=== PATIENT | female | born 1970 | race Two or more races ===

== ENCOUNTER → 2017-08-30 | Outpatient (CLI) | payer BC ==
--- NOTE | 2017-09-01 09:17 | WOMENS IMAGING REPORT ---
EXAM DESCRIPTION: BILAT DIG DX MAMMO NO CHG; U/S BREAST UNILAT LIMITED COMPLETED DATE/TIME: 08/30/2017 1:31 pm; 08/30/2017 2:08 pm REASON FOR STUDY: LUMP IN RIGHT BREAST; BREAST LUMP N63.10 UNSPECIFIED LUMP IN THE RIGHT BREAST, UN SPECIFIED VALERIE COMPARISON: 2013 TECHNIQUE: Standard craniocaudal and mediolateral oblique views of each breast recorded using digita l acquisition. Right breast 90 mediolateral view was obtained. Bilateral breast ultrasound was also performed. LIMITATIONS: None. FINDINGS: RIGHT BREAST MASSES: Nodule right breast retroareolar region about 14 mm in size. This was subsequently shown to represent a complex cyst CALCIFICATIONS: No new or suspicious calcifications. ARCHITECTURAL DISTORTION: None. DEVELOPING DENSITY: None. ASYMMETRY: None noted. OTHER: No other significant findings. LEFT BREAST MASSES: 8 to 9 mm well-circumscribed low-density nodule in the central left retroareolar region subse quently shown to represent a simple breast cyst. CALCIFICATIONS: No new or suspicious calcifications. ARCHITECTURAL DISTORTION: None. DEVELOPING DENSITY: None. ASYMMETRY: None noted. OTHER: No other significant finding. Read with the assistance of CAD: .[facility] - R2 Cenova Version 1.3 .[facility] - R2 Cenova Version 1.3 .[facility] - R2 Cenova Version 2.4 .[facility] [place] - R2 Cenova Version 2.4 .[facility] - R2 M[employer] Acquis[employer] Manager Version 9.2 Bilateral breast ultrasound: On the right side, patient has a palpable abnormality in the lower outer quadrant 7 to 8 o'clock posi tion. This area was scanned with ultrasound, no discrete masses or cysts in this area are identified at ultrasound in the area of questionable palpable abnormality. On the right side, in the 9 o'clock retroareolar region, an hourglass shaped complex cyst is present with slightly thickened wall and internal debris measuring 1.4 x 0.7 cm in size. Ultrasound-guided c ore biopsy and post biopsy clip placement is recommended. Left breast ultrasound was performed to evaluate a central retroareolar low-density nodule on mammogr aphy. In the central retroareolar region left breast, an 8 mm simple cyst is present. In the 9 o'cl ock retroareolar region, 7 mm and 3 mm breast parenchymal cysts are also seen. IMPRESSION: Complex cysts in the right breast retroareolar region containing internal debris with mi ld wall thickening. Ultrasound-guided core biopsy is recommended follow-up BI-RADS 4A -Suspicious abnormality. Low suspicion for malignancy. Biopsy should be performed in the a bsence of clinical contra-indication. No mammographic or sonographic evidence for malignancy left breast BREAST DENSITY: b. There are scattered areas of fibroglandular density. BIRAD: 4A-Suspicious abnormality: Lesion which may require intervention with low suspicion for huber shea. RECOMMENDATION: RECOMMENDED FOLLOW UP: Ultrasound-guided core biopsy and post biopsy clip placement of the right breast retroareolar complex cyst, 9 o'clock position SPECIFIC INTERVENTION/IMAGING/CONSULTATION RECOMMENDED:As above COMMUNICATION:This report was called to Dr. Santiago, 0900 hours, 09/01/2017 COMMENT: The patient has been notified of the results by letter per SA requirements. Additional no tification policies are in place for contacting patient with suspicious or incomplete findings. Quality ID #[id number]: The [employer] recommends an annual screening mammogram for women aged 40 years or over. This facility utilizes a reminder system to ensure that all patients receive reminder letters, and/or direct phone calls for appointments. This includes reminders for routine scr eening mammograms, diagnostic mammograms, or other Breast Imaging Interventions when appropriate. Th is patient will be placed in the appropriate reminder system. The [employer] (ACR) has developed recommendations for screening MRI of the breast s in certain patient populations, to be used in conjunction with mammography. Breast MRI surveillanc e may be appropriate for women with more than 20% lifetime risk of developing breast cancer as deter mined by genetic testing, significant family history of the disease, or history of mantle radiation f or Hodgkins Disease. ACR Practice Guidelines 2008. TECHNICAL DOCUMENTATION: FINDING NUMBER: (1) ASSESSMENT: (1) JOB ID: [id number] [employer]- All Rights Reserved
--- NOTE | 2017-09-01 09:17 | WOMENS IMAGING REPORT ---
EXAM DESCRIPTION: BILAT DIG DX MAMMO NO CHG; U/S BREAST UNILAT LIMITED COMPLETED DATE/TIME: 08/30/2017 1:31 pm; 08/30/2017 2:08 pm REASON FOR STUDY: LUMP IN RIGHT BREAST; BREAST LUMP N63.10 UNSPECIFIED LUMP IN THE RIGHT BREAST, UN SPECIFIED VALERIE COMPARISON: 2013 TECHNIQUE: Standard craniocaudal and mediolateral oblique views of each breast recorded using digita l acquisition. Right breast 90 mediolateral view was obtained. Bilateral breast ultrasound was also performed. LIMITATIONS: None. FINDINGS: RIGHT BREAST MASSES: Nodule right breast retroareolar region about 14 mm in size. This was subsequently shown to represent a complex cyst CALCIFICATIONS: No new or suspicious calcifications. ARCHITECTURAL DISTORTION: None. DEVELOPING DENSITY: None. ASYMMETRY: None noted. OTHER: No other significant findings. LEFT BREAST MASSES: 8 to 9 mm well-circumscribed low-density nodule in the central left retroareolar region subse quently shown to represent a simple breast cyst. CALCIFICATIONS: No new or suspicious calcifications. ARCHITECTURAL DISTORTION: None. DEVELOPING DENSITY: None. ASYMMETRY: None noted. OTHER: No other significant finding. Read with the assistance of CAD: .[facility] - R2 Cenova Version 1.3 .[facility] - R2 Cenova Version 1.3 .[facility] - R2 Cenova Version 2.4 .[facility] - R2 Cenova Version 2.4 .[facility] - R2 Entry Level Accountant Version 9.2 Bilateral breast ultrasound: On the right side, patient has a palpable abnormality in the lower outer quadrant 7 to 8 o'clock posi tion. This area was scanned with ultrasound, no discrete masses or cysts in this area are identified at ultrasound in the area of questionable palpable abnormality. On the right side, in the 9 o'clock retroareolar region, an hourglass shaped complex cyst is present with slightly thickened wall and internal debris measuring 1.4 x 0.7 cm in size. Ultrasound-guided c ore biopsy and post biopsy clip placement is recommended. Left breast ultrasound was performed to evaluate a central retroareolar low-density nodule on mammogr aphy. In the central retroareolar region left breast, an 8 mm simple cyst is present. In the 9 o'cl ock retroareolar region, 7 mm and 3 mm breast parenchymal cysts are also seen. IMPRESSION: Complex cysts in the right breast retroareolar region containing internal debris with mi ld wall thickening. Ultrasound-guided core biopsy is recommended follow-up BI-RADS 4A -Suspicious abnormality. Low suspicion for malignancy. Biopsy should be performed in the a bsence of clinical contra-indication. No mammographic or sonographic evidence for malignancy left breast BREAST DENSITY: b. There are scattered areas of fibroglandular density. BIRAD: 4A-Suspicious abnormality: Lesion which may require intervention with low suspicion for huber shea. RECOMMENDATION: RECOMMENDED FOLLOW UP: Ultrasound-guided core biopsy and post biopsy clip placement of the right breast retroareolar complex cyst, 9 o'clock position SPECIFIC INTERVENTION/IMAGING/CONSULTATION RECOMMENDED:As above COMMUNICATION:This report was called to Dr. Santiago, 0900 hours, 09/01/2017 COMMENT: The patient has been notified of the results by letter per SA requirements. Additional no tification policies are in place for contacting patient with suspicious or incomplete findings. Quality ID #[id number]: The [employer] recommends an annual screening mammogram for women aged 40 years or over. This facility utilizes a reminder system to ensure that all patients receive reminder letters, and/or direct phone calls for appointments. This includes reminders for routine scr eening mammograms, diagnostic mammograms, or other Breast Imaging Interventions when appropriate. Th is patient will be placed in the appropriate reminder system. The [employer] (ACR) has developed recommendations for screening MRI of the breast s in certain patient populations, to be used in conjunction with mammography. Breast MRI surveillanc e may be appropriate for women with more than 20% lifetime risk of developing breast cancer as deter mined by genetic testing, significant family history of the disease, or history of mantle radiation f or Hodgkins Disease. ACR Practice Guidelines 2008. TECHNICAL DOCUMENTATION: FINDING NUMBER: (1) ASSESSMENT: (1) JOB ID: [id number] [employer]- All Rights Reserved
== END ==
LOC: WI 13:07
PROVIDERS: ATTEND Nurse Practitioner Family
DX: N60.02 Solitary cyst of left breast (principal); N60.01 Solitary cyst of right breast
CPT/HCPCS: 76642

== ENCOUNTER → 2017-09-16 | Day surgery (SDC) | payer BC ==
[~2017-09-16] MED LIST: LIDOCAINE 1% INJ-PF (10 MG/ML) 30 ML SDV ONE
--- NOTE | 2017-09-28 08:29 | WOMENS IMAGING REPORT ---
EXAM DESCRIPTION: U/S BREAST BX; RIGHT DIG DX MAMMO NO CHG COMPLETED DATE/TIME: 09/16/2017 2:13 pm; 09/16/2017 2:25 pm REASON FOR STUDY: LUMP IN RIGHT BREAST; S/P RIGHT US BX FOR CLIP PLACEMENT N63.41 N63.41 UNSPECIF IED LUMP IN RIGHT BREAST, SUBAREOLAR COMPARISON: Mammograms and ultrasound 08/30/2017, Mammograms 03/26/2014 TECHNIQUE: The procedure was discussed with the patient and the patient agreed to proceed. The patient was scanned and the area of interest in the right retroareolar 9 o'clock position was loc alized. This correlates with the area of concern on prior imaging studies. This area was targeted fo r ultrasound-guided core biopsy. After sterile skin prep and 3 mL local lidocaine 1% for skin and deep tissue anesthesia, a 14 gauge c oaxial core biopsy needle was used to obtain several cores of tissue from the lesion. Under ultrasou nd guidance, tumor even clips were placed in the area sampled. There were no immediate post-procedur e complications. MAMMOGRAM: Post-procedure two view mammogram was acquired in the digital mammogram suite. The clips a re in the expected location. No significant hematoma. Pathology yields a diagnosis of benign breast tissue with fibrocystic changes and usual ductal hyperp lasia, negative for atypia and malignancy Pathology is concordant. LIMITATIONS: None. FINDINGS: Ultrasound guided breast biopsy as described above. POST PROCEDURE MAMMOGRAMS FOR MARKER PLACEMENT: Yes IMPRESSION: ULTRASOUND-GUIDED CORE BIOPSY OF THE RIGHT BREAST YIELDS A DIAGNOSIS OF BENIGN TISSUE WI TH FIBROCYSTIC CHANGES. NEGATIVE FOR ATYPIA AND MALIGNANCY BI-RADS 2 Benign findings. COMMENT: COMMUNICATION: THESE RESULTS WERE DISCUSSED WITH THE PATIENT 09/22/2017, 3 PM Patient medication list reviewed: Yes- Quality ID# [id number]:Eligible professional attests to documenting i n the medical record they obtained, updated, or reviewed the patient's current medications. TECHNICAL DOCUMENTATION: JOB ID: [id number] [employer]- All Rights Reserved
== END ==
LOC: WI 12:48
PROVIDERS: ATTEND Family Medicine
PROC: 0HBT3ZX Excision of Right Breast, Percutaneous Approach, Diagnostic (ICD-10-PCS; principal; 2017-09-16)
DX: N60.11 Diffuse cystic mastopathy of right breast (principal); N62 Hypertrophy of breast
CPT/HCPCS: 88342 ×2; 88341 ×2; 88305 ×2; 19083; J3490

== ENCOUNTER → 2018-10-20 | Outpatient (CLI) | payer BC ==
[2018-10-20 10:03] LABS: A TYPE INFLUENZA AG NEGATIVE (NEGATIVE); B INFLUENZA AG NEGATIVE (NEGATIVE)
== END ==
LOC: LAB 09:19
PROVIDERS: ATTEND Internal Medicine Pulmonary Disease
DX: R05 Cough (principal); R50.9 Fever, unspecified
CPT/HCPCS: 87804

== ENCOUNTER → 2019-05-31 | Outpatient (CLI) | payer BC ==
[2019-05-31 10:03] LABS: ABSOLUTE BASOPHILS # (AUTO) 0.1 10^3/uL (0.0-0.2); ABSOLUTE EOSINOPHILS # (AUTO) 0.2 10^3/uL (0.0-0.6); ABSOLUTE LYMPHOCYTES (AUTO) 2.3 10^3/uL (0.5-4.7); ABSOLUTE MONOCYTES (AUTO) 0.6 10^3/uL (0.1-1.4); ABSOLUTE NEUT (AUTO) 3.6 10^3/uL (1.7-8.2); BASOPHILS % (AUTO) 0.9 % (0-2); EOSINOPHILS % (AUTO) 3.2 % (0-6); HEMATOCRIT 42.8 % (36.0-47.0); HEMOGLOBIN 14.1 g/dL (12.0-15.5); LYMPHOCYTES % (AUTO) 33.5 % (13-45); MEAN CORPUSCULAR HEMOGLOBIN 27.5 pg (27.0-33.4); MEAN CORPUSCULAR HGB CONC 32.9 g/dL (32.0-36.0); MEAN CORPUSCULAR VOLUME 83 fl (80-97); MONOCYTES % (AUTO) 9.6 % (3-13); PLATELET COUNT 174 10^3/uL (150-450); RED BLOOD COUNT 5.13 10^6/uL (3.72-5.28); RED CELL DISTRIBUTION WIDTH 15.7 % (11.5-14.0); SEGMENTED NEUTROPHILS % (AUTO) 52.8 % (42-78); TOTAL CELLS COUNTED % (AUTO) 100 %; WHITE BLOOD COUNT 6.8 10^3/uL (4.0-10.5)
[2019-05-31 10:26] LABS: ALBUMIN 4.4 g/dL (3.5-5.0); ALKALINE PHOSPHATASE 115 U/L (38-126); ANION GAP 11 (5-19); ASPARTATE AMINO TRANSFERASE 75 U/L (14-36); BILIRUBIN,DIRECT 0.1 mg/dL (0.0-0.4); BILIRUBIN,TOTAL 0.5 mg/dL (0.2-1.3); BLOOD UREA NITROGEN 20 mg/dL (7-20); CALCIUM 9.7 mg/dL (8.4-10.2); CARBON DIOXIDE 26 mmol/L (22-30); CHLORIDE 107 mmol/L (98-107); CHOLESTEROL 197.44 mg/dL (0-200); GLUCOSE 106 mg/dL (75-110); POTASSIUM 4.5 mmol/L (3.6-5.0); TRIGLYCERIDES 162 mg/dL (<150)
[2019-05-31 10:37] LABS: DIRECT LDL 114 mg/dL (<100)
[2019-05-31 10:39] LABS: VLDL CHOLESTEROL 32.4 mg/dL (10-31)
== END ==
LOC: LAB 09:33
PROVIDERS: ATTEND Physician Assistant
DX: Z00.00 Encounter for general adult medical examination without abnormal findings (principal); R68.89 Other general symptoms and signs; E78.5 Hyperlipidemia, unspecified; E87.5 Hyperkalemia; Z79.899 Other long term (current) drug therapy
CPT/HCPCS: 36415; 80053; 80061; 82306; 83036; 84443; 85025

== ENCOUNTER → 2019-08-23 | Outpatient (CLI) | payer BC ==
[2019-08-23 10:11] LABS: ALBUMIN 4.3 g/dL (3.5-5.0); ALKALINE PHOSPHATASE 107 U/L (38-126); ANION GAP 10 (5-19); ASPARTATE AMINO TRANSFERASE 40 U/L (14-36); BILIRUBIN,DIRECT 0.2 mg/dL (0.0-0.4); BILIRUBIN,TOTAL 0.4 mg/dL (0.2-1.3); BLOOD UREA NITROGEN 24 mg/dL (7-20); CALCIUM 9.7 mg/dL (8.4-10.2); CARBON DIOXIDE 27 mmol/L (22-30); CHLORIDE 105 mmol/L (98-107); GLUCOSE 109 mg/dL (75-110); POTASSIUM 4.8 mmol/L (3.6-5.0); TOTAL PROTEIN 7.9 g/dL (6.3-8.2)
== END ==
LOC: LAB 08:55
PROVIDERS: ATTEND Physician Assistant
DX: R94.5 Abnormal results of liver function studies (principal)
CPT/HCPCS: 36415; 80053; 83036

== ENCOUNTER → 2020-02-02 | Outpatient (CLI) | payer BC | LOC: RDC 14:39 | PROVIDERS: ATTEND Nurse Practitioner Family | DX: Z53.9 Procedure and treatment not carried out, unspecified reason (principal) | CPT/HCPCS: 87635; C9803 ==

== ENCOUNTER → 2020-04-06 | Outpatient (CLI) | payer BC ==
[2020-04-06 12:36] LABS: A TYPE INFLUENZA AG NEGATIVE (NEGATIVE); B INFLUENZA AG NEGATIVE (NEGATIVE)
[2020-04-06 13:58] VITALS: BP 143/80
--- NOTE | 2020-04-06 13:58 | ER RDC ASSESSMENT REPORT ---
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 - Symptoms Subjective Fever([place] feverish): Yes Chills: Yes Muscule Aches: Yes Runny Nose: Yes Sore Throat: Yes Cough (New or worsening chronic cough): Yes Shortness of breath: No Nausea or Vomiting: No Headache: Yes Abdominal Pain: Yes Diarrhea(3 or more loose stools in last 24 hours): No - Do you have any of the following Chronic lung disease: Asthma or emphysema or COPD: No Cystic Fibrosis: No Diabetes: No High Blood Pressure: No Cardiovascular Disease: No Chronic Kidney Disease: No Chronic Liver Disease: No Chronic blood disorder like Sickle Cell Disease: No Weak immune system due to disease or medication: No Neurologic condition that limits movement: No Developmental delay - Moderate to Severe: No Recent (within past 2 weeks) or current : No Morbid Obesity (>100 pounds over ideal weight): Yes - Objective Temperature: 97.9 F Pulse Rate: 57 Respiratory Rate: 19 Blood Pressure: 143/80 O2 Sat by Pulse Oximetry: 97 Objective: Patient is a well-appearing 49-year-old female, who presents today for COVID-19 screening. Disposition: Home; Selfcare General - General Stated Complaint: Upper respiratory symptoms Mode of Arrival: Ambulatory Information source: Patient Notes: The patient was evaluated during the global COVID-19 pandemic. That diagnosis was suspected/considered upon initial presentation. Their evaluation, treatment, and testing was consistent with current guidelines for patients who present with complaints or symptoms that may be related to COVID-19. 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 - HPI Patient complains to provider of: Upper respiratory symptoms Onset: Last week Onset/Duration: Gradual, Persistent, Worse Quality of pain: Achy Severity: Moderate Pain Level: 3 Context: Generalized body aches. Associated symptoms: Body/muscle aches, Chills, Fever, Headache, Nausea, Vomiting, Rhinnorhea, Sore throat Exacerbated by: Denies Relieved by: Denies Similar symptoms previously: No Recently seen / treated by doctor: No - Related Data Allergies/Adverse Reactions: aspartame Allergy (Verified 06/29/15 18:54) latex [Latex] Allergy (Verified 06/29/15 18:53) meperidine HCl [From Demerol] Allergy (Verified 06/29/15 18:52) naproxen sodium [From Aleve] Allergy (Verified 06/29/15 18:53) Past Medical History - Social History Smoking Status: Former Smoker Cigarette use (# per day): No - Patient reports she quit smoking 6 years ago Chew tobacco use (# tins/day): No Smoking Education Provided: Yes Frequency of alcohol use: Occasional Drug Abuse: None 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 HEAD: Atraumatic, normocephalic. EYES: sclera anicteric, conjunctiva are normal. ENT: nares patent. Moist mucous membranes. NECK: Normal range of motion, supple without lymphadenopathy. LUNGS: CTAB and equal. No wheezes rales or rhonchi. HEART: Regular rate and rhythm without murmurs. ABDOMEN: Soft, nontender, normal bowel sounds, no guarding. EXTREMITIES: Normal range of motion, no pitting edema. No cyanosis. BACK: No midline or CVA tenderness. NEUROLOGICAL: Cranial nerves grossly intact. Normal speech. Normal gait. PSYCH: Normal mood, normal affect. SKIN: Warm, Dry, normal color and turgor, no obvious lesions or rash noted. Diagnostic Results Laboratory Results: Patient notified of NEGATIVE results on Rapid Flu (A & B) and Rapid Strep. Advised Throat Culture and COVID testing are PENDING, and they will be notified of any POSITIVE culture results at a later date/time. Patient has been made aware that is currently taking 5-7 days for COVID test results, and that [facility] [place] with their COVID-19 test results, whether they are NEGATIVE or POSITIVE. 04/06/20 11:35 Throat Throat Culture - Pending Influenza A (Rapid) NEGATIVE (NEGATIVE) 04/06/20 10:46 Influenza B (Rapid) NEGATIVE (NEGATIVE) 04/06/20 10:46 Group A Strep Rapid NEGATIVE (NEGATIVE) 04/06/20 10:46 Patient Education/Counseling Counseling/Education: Patient presents with upper respiratory symptoms worrisome for possible COVID- 19. Patient does not have symptoms worrisome as an emergency such as difficulty breathing, shortness of breath, chest pain, pressure, confusion or cyanosis. Patient appears suitable for discharge. Patient's vital signs are stable and patient is nontoxic in appearance. Good return precautions have been discussed with patient, patient verbalized understanding and is agreeable with discharge plan of care at this time. Patient provided COVID-19 discharge instructions to include: As a person under investigation for COVID-19, the [facility], division of public health advises you to adhere to the following guidance until your test results are reported to you. If your test result is positive, you will receive additional information from your provider and your local health department at that time. Remain at home until you are cleared by the health provider or public health authorities. Keep a log of visitors to your home, notify any visitors to your home of your isolation status. If you plan to move to a new address or leave the county, notify the local health department in your County. Call your doctor or seek care if you have an urgent medical need. Before seeking medical care, call ahead to get instructions from the provider before arriving at the medical office clinic or hospital. Notify them that you are being tested for the virus that causes COVID-19 so that arrangements can be made, as necessary, to prevent transmission to others in the healthcare setting. Next, notify the local health department in your county. If a medical emergency arises and you need to call 911, inform dispatch and the first responders that you are being tested for the virus that causes COVID-19. Next, notify the local health department in your county. Patient provided education on smoking cessation and the harmful effects of smoking, especially in the presence of Co-morbid conditions such as Hypertension, Diabetes, and/or other chronic illnesses. Patient verbalized understanding of smoking cessation education, and the increased health benefits of quitting. Guidance for worsening S/SX: For worsening symptoms, patient has been advised to contact their Primary Care Provider, or go to the nearest Emergency Department. RDC Discharge - Discharge Clinical Impression: COVID-19 Screening URI (upper respiratory infection) Qualifiers: URI type: unspecified URI Qualified Code(s): J06.9 - Acute upper respiratory infection, unspecified Condition: Stable Disposition: Home; Selfcare
== END ==
LOC: RDC 10:30
PROVIDERS: ATTEND Nurse Practitioner Family
DX: J06.9 Acute upper respiratory infection, unspecified (principal); Z20.828 Contact with and (suspected) exposure to other viral communicable diseases; R50.9 Fever, unspecified; R05 Cough; J02.9 Acute pharyngitis, unspecified; J34.89 Other specified disorders of nose and nasal sinuses; M79.10 Myalgia, unspecified site; R51 Headache; R10.9 Unspecified abdominal pain; E66.01 Morbid (severe) obesity due to excess calories; Z88.8 Allergy status to other drugs, medicaments and biological substances; Z91.040 Latex allergy status; Z87.891 Personal history of nicotine dependence
CPT/HCPCS: 87070; 87880; 87804; U0003; C9803; 87635; 99201; 99211

== ENCOUNTER 2020-04-14 10:39 | Emergency (ER) | payer BC ==
--- NOTE | 2020-04-14 11:05 | ER Document Report ---
ED Medical Screen (RME) - General Chief Complaint: Groin Pain Stated Complaint: GROIN PAIN,BACK PAIN Time Seen by Provider: 04/14/20 10:59 Primary Care Provider: KADE BARRETT MD [Primary Care Provider] - Follow up as needed Mode of Arrival: Ambulatory Information source: Patient Notes: 50-year-old female presented to ED for 2 different problems first problem is she has a large knot on her right groin that started April 05. She states it became more painful and larger so she applied heat and then ice and then it made her whole body hot and her whole body hurt and then she had a fever and then she went to bed and it got better overnight and then the more the next morning it developed the same night again so she used heat and ice again and she developed a fever and the body aches again so she came to the emergency room to get this checked out. Her second problem is she thinks she has COVID. She states that she had stomach pain fevers body aches started on April 04. She states that by April 09 her fever was up to 102.6. She states from Wednesday on her temperature has not gotten over 100. She states she has had abdominal pain that got her stomach so hard her body aches headaches fevers and chills on and off since then. She went last Wednesday when she first started getting sick to the [facility]. She states they did do saline washes and then told her to self swab herself. She did not know how far down to go so she went it came back negative she was not sure if this was accurate so Wednesday the second she went to [facility] to get the COVID rechecked and they told her to get do a self swab did not give her any instructions so she is not sure if she swab herself properly again and it was negative again. She states her granddaughter was with her and was also swabbed she has been having fevers and body aches and the same symptoms as her. She states what is concerning her is that her niece got sick the same time they did she is a nurse and she tested herself for COVID at [facility] on Wednesday and hers came back positive and that they had all been together when they all got sick. Patient has a history of a hysterectomy a cholecystectomy and umbilical hernia does not smoke drink or use any drugs. Is alert oriented respirations regular nonlabored and very able to speak in full sentences. I have greeted and performed a rapid initial assessment of this patient. A comprehensive ED assessment and evaluation of the patient, analysis of test results and completion of medical decision making process will be conducted by an additional ED providers. TRAVEL OUTSIDE OF THE [place] IN LAST 30 DAYS: No - Related Data Allergies/Adverse Reactions: aspartame Allergy (Verified 06/29/15 18:54) latex [Latex] Allergy (Verified 06/29/15 18:53) meperidine HCl [From Demerol] Allergy (Verified 06/29/15 18:52) naproxen sodium [From Aleve] Allergy (Verified 06/29/15 18:53) artificial sweetner Allergy (Uncoded 04/14/20 10:48) Past Medical History Past Surgical History: Reports: Hx Abdominal Surgery - hernia, Hx Cholecystectomy, Hx Hysterectomy Doctor's Discharge - Discharge Referrals: KADE BARRETT MD [Primary Care Provider] - Follow up as needed
[2020-04-14 11:42] LABS: ABSOLUTE BASOPHILS # (AUTO) 0.1 10^3/uL (0.0-0.2); ABSOLUTE EOSINOPHILS # (AUTO) 0.3 10^3/uL (0.0-0.6); ABSOLUTE LYMPHOCYTES (AUTO) 2.9 10^3/uL (0.5-4.7); ABSOLUTE MONOCYTES (AUTO) 1.1 10^3/uL (0.1-1.4); ABSOLUTE NEUT (AUTO) 7.1 10^3/uL (1.7-8.2); BASOPHILS % (AUTO) 0.5 % (0-2); EOSINOPHILS % (AUTO) 2.3 % (0-6); HEMATOCRIT 39.2 % (36.0-47.0); HEMOGLOBIN 13.5 g/dL (12.0-15.5); MEAN CORPUSCULAR HEMOGLOBIN 30.6 pg (27.0-33.4); MEAN CORPUSCULAR HGB CONC 34.4 g/dL (32.0-36.0); MEAN CORPUSCULAR VOLUME 89 fl (80-97); MONOCYTES % (AUTO) 9.9 % (3-13); PLATELET COUNT 184 10^3/uL (150-450); RED BLOOD COUNT 4.42 10^6/uL (3.72-5.28); RED CELL DISTRIBUTION WIDTH 14.6 % (11.5-14.0); SEGMENTED NEUTROPHILS % (AUTO) 62.3 % (42-78); TOTAL CELLS COUNTED % (AUTO) 100 %; WHITE BLOOD COUNT 11.4 10^3/uL (4.0-10.5)
[2020-04-14 11:56] LABS: APPEARANCE,URINE CLOUDY; BILIRUBIN,URINE MODERATE (NEGATIVE); COLOR,URINE AMBER; GLUCOSE, URINE NEGATIVE (NEGATIVE); KETONES,URINE NEGATIVE (NEGATIVE); LEUKOCYTE ESTERASE,URINE NEGATIVE (NEGATIVE); NITRITE,URINE NEGATIVE (NEGATIVE); PROTEIN,URINE 100 mg/dL (NEGATIVE); URINE SPECIFIC GRAVITY 1.038
[2020-04-14 12:03] LABS: ALBUMIN 3.6 g/dL (3.5-5.0); ALKALINE PHOSPHATASE 112 U/L (38-126); ANION GAP 9 (5-19); ASPARTATE AMINO TRANSFERASE 28 U/L (14-36); BILIRUBIN,DIRECT 0.4 mg/dL (0.0-0.4); BILIRUBIN,TOTAL 0.5 mg/dL (0.2-1.3); BLOOD UREA NITROGEN 11 mg/dL (7-20); CALCIUM 8.5 mg/dL (8.4-10.2); CARBON DIOXIDE 26 mmol/L (22-30); CHLORIDE 107 mmol/L (98-107); GLUCOSE 94 mg/dL (75-110); POTASSIUM 3.6 mmol/L (3.6-5.0); TOTAL PROTEIN 7.3 g/dL (6.3-8.2)
[2020-04-14] MEDS ORDERED: NORMAL SALINE 1000 ML 1,000 ML IV ONE (14:26)
[2020-04-14] MEDS ORDERED: ONDANSETRON HCL INJ/PF 4 MG/2 ML SDV IV ONE (14:27)
[2020-04-14] MEDS ORDERED: MORPHINE SULFATE 10 MG/ML INJ IV ONE ×2 (14:27→16:45)
[2020-04-14] MEDS ORDERED: CEFTRIAXONE INJ 1000 MG VIAL IV ONE (14:28)
--- NOTE | 2020-04-14 14:29 | ER Document Report ---
ED General - General Chief Complaint: Pain All Over Stated Complaint: GROIN PAIN,BACK PAIN Time Seen by Provider: 04/14/20 10:59 Primary Care Provider: KADE BARRETT MD [Primary Care Provider] - Follow up in 1 week Mode of Arrival: Ambulatory Notes: Patient is a 50-year-old female presents emergency departmentPatient states that her groin pain started around April 05. Denies any dysuria. Patient is wondering if whether or not she has an abscess to the area. Patient states that temperature got as high as 102.6. This was the beginning of April. Patient was tested for COVID-19 at the [facility] clinic, but was told to self swab. She then went to [facility] and asked her to self swab there. Patient states that she the highest temperature she had was 102.6. She has been taking ibuprofen and Tylenol to help with the pain. TRAVEL OUTSIDE OF THE [place] IN LAST 30 DAYS: No - Related Data Allergies/Adverse Reactions: aspartame Allergy (Verified 06/29/15 18:54) latex [Latex] Allergy (Verified 06/29/15 18:53) meperidine HCl [From Demerol] Allergy (Verified 06/29/15 18:52) naproxen sodium [From Aleve] Allergy (Verified 06/29/15 18:53) artificial sweetner Allergy (Uncoded 04/14/20 10:48) Past Medical History - General Information source: Patient - Social History Smoking Status: Never Smoker Family History: CVA, Hypertension Past Surgical History: Reports: Hx Abdominal Surgery - hernia, Hx Cholecystectomy, Hx Hysterectomy Review of Systems - Review of Systems Notes: REVIEW OF SYSTEMS: CONSTITUTIONAL : See HPI. EENT: Denies eye, ear, throat, or mouth pain, discharge, or symptoms. Denies nasal or sinus congestion. CARDIOVASCULAR: Denies chest pain. RESPIRATORY: Denies shortness of breath, cough, congestion, difficulty breathing, or wheezing. GASTROINTESTINAL: See HPI. GENITOURINARY: Denies difficulty urinating, burning, blood in urine, urgency or frequency. MUSCULOSKELETAL: Denies neck and back pain. Denies joint pain or swelling. SKIN: Denies rash, itchiness, or lesions HEMATOLOGIC : Denies easy bruising or bleeding. LYMPHATIC: Denies swollen, painful, enlarged glands. NEUROLOGICAL: Denies no numbness or tingling denies weakness. Denies headache. Denies altered mental status. Denies alteration in speech. PSYCHIATRIC: Denies stress, anxiety, alteration in sleep patterns, or depression. All other systems reviewed and negative. Physical Exam - Vital signs Vitals: Temp Pulse Resp BP Pulse Ox 98.4 F 68 18 123/73 96 04/14/20 10:45 04/14/20 10:45 04/14/20 10:45 04/14/20 10:45 04/14/20 10:45 - Notes Notes: PHYSICAL EXAMINATION: GENERAL: Appears well, healthy, well-nourished, no acute distress. HEAD: Normocephalic, atraumatic. EYES: PERRL, conjunctiva normal, all extraocular movements intact, sclera nonicteric ENT: Moist mucous membranes. NECK: Supple, no noticeable swelling, redness, rash. Normal range of motion. LUNGS: Equal breath sounds bilaterally and clear to auscultation. No wheezes rales or rhonchi. CARDIOVASCULAR: S1-S2, regular rate, regular rhythm. Radial pulses 2+, normal. ABDOMEN: Normoactive bowel sounds. Soft, tender right groin area. EXTREMITIES: Normal strength and range of motion, no pitting or edema. No cyanosis. NEUROLOGICAL: Moves all extremities upon command. Strength 5/5 in all extremities. PSYCH: Normal mood, normal affect. SKIN: Warm, dry. No rash, lesions, ulcerations noted. Normal skin turgor. Course - Re-evaluation Re-evalutation: 04/14/20 14:43 Hematology shows a leukocytosis of 11,400. Chemistries are unremarkable. Urinalysis is also unremarkable. Patient is protein in her urine. The patient was evaluated during the global COVID-19 pandemic and that diagnosis was susp ected/considered upon their initial presentation. Their evaluation, treatment and testing was consistent with current guidelines for patients who present with complaints or symptoms that may be related to COVID-19. 04/14/20 17:[address] shows lymphadenopathy. No abscess noted. There is some stranding noted. We will start the patient on Augmentin, as she does have right otitis media, sinus infection and stranding to her right groin area. The patient was evaluated during the global COVID-19 pandemic and that diagnosis was suspected/considered upon their initial presentation. Their evaluation, treatment and testing was consistent with current guidelines for patients who present with complaints or symptoms that may be related to COVID-19. - Vital Signs Vital signs: Temp Pulse Resp BP Pulse Ox 98.1 F 57 L 18 117/55 L 100 04/14/20 17:44 04/14/20 17:44 04/14/20 17:44 04/14/20 17:44 04/14/20 17:44 - Laboratory Result Diagrams: 04/14/20 11:25 04/14/20 11:25 Laboratory results interpreted by me: 04/14/20 04/14/20 11:25 11:25 WBC 11.4 H RDW 14.6 H Urine Protein 100 H Urine Bilirubin MODERATE H Urine Urobilinogen 2.0 H Discharge - Discharge Clinical Impression: Suspected COVID-19 virus infection, Inguinal lymphadenopathy, Sinus headache Right otitis media Qualifiers: Otitis media type: suppurative Chronicity: acute Recurrence: non-recurrent Spontaneous tympanic membrane rupture: without spontaneous rupture Qualified Code(s): H66.001 - Acute suppurative otitis media without spontaneous rupture of ear drum, right ear Condition: Stable Disposition: HOME, SELF-CARE Additional Instructions: You were seen today in the emergency department for body aches and generally not feeling well. You have enlarged lymph nodes in your right groin area. You are being started on antibiotics for your sinuses, cellulitis to your right groin area, and a right ear infection. Take all your antibiotics as prescribed. He can take your pain medication as prescribed also. You are also being tested for COVID-19. Please quarantine as you have before. If the lymph node does not go away with antibiotics, please follow-up with your primary care provider to have a PET scan for CT scan as advised. Prescriptions: Amoxicillin/Potassium Clav [Augmentin 875-125 Tablet] 1 tab PO BID #20 tab Hydrocodone/Acetaminophen [[place] 5-325 mg Tablet] 1 tab PO ASDIR PRN #20 tablet PRN Reason: Referrals: KADE BARRETT MD [Primary Care Provider] - Follow up in 1 week
--- NOTE | 2020-04-14 16:21 | RADIOLOGY REPORT (SQ) ---
EXAM DESCRIPTION: CT PELVIS WITH IMAGES COMPLETED DATE/TIME: 04/14/2020 3:48 pm REASON FOR STUDY: right groin swelling; lymph node? COMPARISON: CT abdomen and pelvis 06/29/2015. TECHNIQUE: CT scan of the pelvis was performed following the uneventful administration of 100 mL Omn ipaque 350 intravenous contrast material. Images reviewed with soft tissue and bone windows. Recons tructed coronal and sagittal MPR images reviewed. All images stored on PACS. All CT scanners at this facility use dose modulation, iterative reconstruction, and/or weight based d osing when appropriate to reduce radiation dose to as low as reasonably achievable (ALARA). [facility]: Dose Right [facility]: CareDose [facility]: Dose Right [facility]: Teradose 4D [facility]: [employer] Intravenous contrast material: 100 mL Omnipaque 350. Renal function study: Creatinine 0.64 RADIATION DOSE: CT Rad equipment meets quality standard of care and radiation dose reduction techniq ues were employed. CTDIvol: 17.4 - 20.1 mGy. DLP: 1450 mGy-cm. mGy. LIMITATIONS: None. FINDINGS: There is an enlarged enhancing lymph node at the right inguinal region measuring 2.9 x 4.4 cm. There is adjacent mild soft tissue stranding. There is a mildly enlarged lymph node at the right external iliac chain measuring 1.3 cm in short axi s. Mildly enlarged lymph node along the right pelvic wall is measuring 1.0 cm in short axis. Mildly enlarged lymph node at the right common iliac chain is measuring 1.2 cm in short axis. The urinary bladder is partially distended. There is no pelvic mass or free fluid. No dilated bowel loops at the visualized lower abdomen or pelvis. There is diastasis recti. Degenerative changes at the visualized lower lumbar spine. IMPRESSION: Enlarged enhancing lymph node at the right inguinal region with mild adjacent soft tissu e stranding and mild adenopathy at the right pelvis and retroperitoneum. This may represent reactive adenopathy due to acute infection/inflammation versus metastatic disease. Evaluation with tissue sa mpling and/or PET/CT as clinically warranted. TECHNICAL DOCUMENTATION: JOB ID: [id number] [place]- Quality ID # [id number]: Final reports with documentation of one or more dose reduction techniques (e.g., Au tomated exposure control, adjustment of the mA and/or kV according to patient size, use of iterative reconstruction technique) 2010 [employer]- All Rights Reserved Reading location - IP/workstation name: [email or web address]
[2020-04-14] MEDS ORDERED: HYDROCODONE/ACETAMINOPHEN 5-325 MG (6 TAB/ER DISP) PO PRN (17:20)
[2020-04-14 17:44] VITALS: BP 117/55
== END 2020-04-14 17:44 | disposition home or self-care (01) ==
LOC: ER 10:39
DX: R59.0 Localized enlarged lymph nodes (principal); R10.30 Lower abdominal pain, unspecified; R51 Headache; J32.9 Chronic sinusitis, unspecified; H66.001 Acute suppurative otitis media without spontaneous rupture of ear drum, right ear; Z91.040 Latex allergy status; Z88.6 Allergy status to analgesic agent; Z88.5 Allergy status to narcotic agent; Z88.8 Allergy status to other drugs, medicaments and biological substances; Z91.018 Allergy to other foods; Z20.828 Contact with and (suspected) exposure to other viral communicable diseases
CPT/HCPCS: 96376; 99285; 96361; 96375; 96365; 36415; 87086; 85025; 80053; 81001; 72193; U0003; J2270; J0696; J2405; J7030; C9803; 87635

== ENCOUNTER → 2020-04-26 | Outpatient (CLI) | payer BC ==
[2020-04-26 15:36] LABS: APPEARANCE,URINE SLIGHTLY-CLOUDY; BILIRUBIN,URINE NEGATIVE (NEGATIVE); COLOR,URINE YELLOW; GLUCOSE, URINE NEGATIVE (NEGATIVE); KETONES,URINE NEGATIVE (NEGATIVE); LEUKOCYTE ESTERASE,URINE NEGATIVE (NEGATIVE); NITRITE,URINE NEGATIVE (NEGATIVE); PROTEIN,URINE NEGATIVE (NEGATIVE); URINE SPECIFIC GRAVITY 1.023; UROBILINOGEN,URINE NEGATIVE mg/dL (<2.0)
[2020-04-26 15:37] LABS: ABSOLUTE EOSINOPHILS # (AUTO) 0.2 10^3/uL (0.0-0.6); ABSOLUTE LYMPHOCYTES (AUTO) 2.5 10^3/uL (0.5-4.7); ABSOLUTE MONOCYTES (AUTO) 0.8 10^3/uL (0.1-1.4); ABSOLUTE NEUT (AUTO) 4.1 10^3/uL (1.7-8.2); BASOPHILS % (AUTO) 0.5 % (0-2); EOSINOPHILS % (AUTO) 2.3 % (0-6); HEMATOCRIT 35.8 % (36.0-47.0); HEMOGLOBIN 12.4 g/dL (12.0-15.5); LYMPHOCYTES % (AUTO) 32.2 % (13-45); MEAN CORPUSCULAR HEMOGLOBIN 30.5 pg (27.0-33.4); MEAN CORPUSCULAR HGB CONC 34.5 g/dL (32.0-36.0); MEAN CORPUSCULAR VOLUME 88 fl (80-97); MONOCYTES % (AUTO) 11.1 % (3-13); PLATELET COUNT 253 10^3/uL (150-450); RED BLOOD COUNT 4.06 10^6/uL (3.72-5.28); RED CELL DISTRIBUTION WIDTH 15.1 % (11.5-14.0); SEGMENTED NEUTROPHILS % (AUTO) 53.9 % (42-78); TOTAL CELLS COUNTED % (AUTO) 100 %; WHITE BLOOD COUNT 7.6 10^3/uL (4.0-10.5)
[2020-04-26 15:58] LABS: ALBUMIN 3.8 g/dL (3.5-5.0); ALKALINE PHOSPHATASE 112 U/L (38-126); AMYLASE 49 U/L (30-110); ANION GAP 7 (5-19); ASPARTATE AMINO TRANSFERASE 25 U/L (14-36); BILIRUBIN,DIRECT 0.3 mg/dL (0.0-0.4); BILIRUBIN,TOTAL 0.4 mg/dL (0.2-1.3); BLOOD UREA NITROGEN 15 mg/dL (7-20); C-REACTIVE PROTEIN 53.5 mg/L (<10.0); CALCIUM 8.8 mg/dL (8.4-10.2); CARBON DIOXIDE 26 mmol/L (22-30); CHLORIDE 105 mmol/L (98-107); GLUCOSE 100 mg/dL (75-110); POTASSIUM 4.2 mmol/L (3.6-5.0); URIC ACID 4.3 mg/dL (2.5-7.5)
[2020-04-26 16:20] LABS: ERYTHROCYTE SEDIMENTATION RATE 97 mm/hr (0-30)
== END ==
LOC: LAB 14:55
PROVIDERS: ATTEND Family Medicine
DX: R10.9 Unspecified abdominal pain (principal); M25.50 Pain in unspecified joint
CPT/HCPCS: 36415; 80053; 81001; 82150; 82977; 83520; 83690; 84443; 84550; 85025; 85652; 86038; 86140; 86431; 86617; 86618; 86671; 86747; 86757

== ENCOUNTER → 2020-04-30 | Outpatient (CLI) | payer BC ==
[2020-05-01 13:37] LABS: BARTONELLA HENSELAE IGG Negative titer (Neg:<1:320); BARTONELLA HENSELAE IGM Negative titer (Neg:<1:100); BARTONELLA QUINTANA IGG Negative titer (Neg:<1:320)
[2020-05-01 13:46] LABS: BARTONELLA QUINTANA IGM Negative titer (Neg:<1:100)
== END ==
LOC: OD 10:23
PROVIDERS: ATTEND Family Medicine
DX: T14.8XXA Other injury of unspecified body region, initial encounter (principal); X58.XXXA Exposure to other specified factors, initial encounter; Y93.9 Activity, unspecified; Y92.9 Unspecified place or not applicable
CPT/HCPCS: 36415; 86317

== ENCOUNTER → 2020-05-07 | Outpatient (CLI) | payer BC ==
--- NOTE | 2020-05-07 18:24 | RADIOLOGY REPORT (SQ) ---
EXAM DESCRIPTION: U/S NON-OB PELVIS LTD W/O DOP IMAGES COMPLETED DATE/TIME: 05/07/2020 5:34 pm REASON FOR STUDY: (R59.9)ENLARGED LYMPH NODES, UNSPECIFIED R59.9 ENLARGED LYMPH NODES, UNSPECIFIED COMPARISON: 04/14/2020 TECHNIQUE: Dynamic and static grayscale images acquired of the localized site of clinical concern an d recorded on PACS. Additional selected color Doppler and spectral images recorded. SITE OF CONCERN: Bilateral inguinal regions. LIMITATIONS: None. FINDINGS: SKIN AND SUBCUTANEOUS TISSUES: The patient's palpable abnormality in the right inguinal re gion correlates to a 2.8 x 1.2 x 2.6 cm lymph node. An additional 3.0 x 2.4 x 2.1 cm hypoechoic stru cture seen adjacent to this node may correlate to findings on comparison CT imaging. Targeted evalua tion of the left inguinal region demonstrates a normal- morphology lymph node. DEEP SOFT TISSUES/MUSCLES: No masses. No fluid collections. No edema. VASCULAR: No increased or decreased vascularity. No occlusions. OTHER: No other significant finding. IMPRESSION: Prominent right inguinal lymph node. An additional hypoechoic structure seen adjacent t o this node may correlate to a large javier mass demonstrated on comparison CT imaging. No acute find ings. TECHNICAL DOCUMENTATION: JOB ID: [id number] 2010 [employer]- All Rights Reserved Reading location - IP/workstation name: [email or web address]
== END ==
LOC: RAD 16:43
PROVIDERS: ATTEND Family Medicine
DX: R59.9 Enlarged lymph nodes, unspecified (principal)
CPT/HCPCS: 76857

== ENCOUNTER → 2020-07-05 | Outpatient (CLI) | payer BC ==
--- NOTE | 2020-07-05 10:17 | ER RDC ASSESSMENT REPORT ---
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 - Symptoms Subjective Fever([place] feverish): No Chills: No Muscule Aches: Yes Runny Nose: Yes Sore Throat: Yes Cough (New or worsening chronic cough): Yes Shortness of breath: No Nausea or Vomiting: Yes Headache: Yes Abdominal Pain: No Diarrhea(3 or more loose stools in last 24 hours): No - Do you have any of the following Chronic lung disease: Asthma or emphysema or COPD: No Cystic Fibrosis: No Diabetes: No High Blood Pressure: No Cardiovascular Disease: No Chronic Kidney Disease: No Chronic Liver Disease: No Chronic blood disorder like Sickle Cell Disease: No Weak immune system due to disease or medication: No Neurologic condition that limits movement: No Developmental delay - Moderate to Severe: No Recent (within past 2 weeks) or current : No Morbid Obesity (>100 pounds over ideal weight): Yes - Objective Temperature: 98.1 F Pulse Rate: 66 Respiratory Rate: 18 Blood Pressure: 122/59 O2 Sat by Pulse Oximetry: 95 Objective: Patient is a well-appearing 50-year-old female, who presents today for COVID-19 screening. Disposition: Home; Selfcare General - General Stated Complaint: Upper respiratory symptoms Mode of Arrival: Ambulatory Information source: Patient Notes: The patient was evaluated during the global COVID-19 pandemic. That diagnosis was suspected/considered upon initial presentation. Their evaluation, treatment, and testing was consistent with current guidelines for patients who present with complaints or symptoms that may be related to COVID-19. Patient reports having close contact exposure to a COVID-19 lab confirmed positive individual. - HPI Patient complains to provider of: Upper respiratory symptoms Onset: Last week Onset/Duration: Constant, Persistent, Worse Quality of pain: Achy Severity: Mild Pain Level: 2 Context: Generalized body aches. Associated symptoms: Body/muscle aches, Nonproductive cough, Headache, Nausea, Vomiting, Rhinnorhea, Sore throat Exacerbated by: Denies Relieved by: Denies Similar symptoms previously: No Recently seen / treated by doctor: No - Related Data Allergies/Adverse Reactions: aspartame Allergy (Verified 06/29/15 18:54) latex [Latex] Allergy (Verified 06/29/15 18:53) meperidine HCl [From Demerol] Allergy (Verified 06/29/15 18:52) naproxen sodium [From Aleve] Allergy (Verified 06/29/15 18:53) artificial sweetner Allergy (Uncoded 04/14/20 10:48) Past Medical History - Social History Smoking Status: Former Smoker Cigarette use (# per day): No - Quit smoking 12 years ago Chew tobacco use (# tins/day): No Smoking Education Provided: Yes Frequency of alcohol use: Occasional Drug Abuse: None 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 HEAD: Atraumatic, Normocephalic. EYES: Sclera anicteric, Conjunctiva are pink and moist. ENT: Nares patent. Moist mucous membranes. NECK: Normal range of motion, supple without lymphadenopathy. LUNGS: CTAB and equal. No wheezes rales or rhonchi. HEART: Regular rate and rhythm without murmurs. ABDOMEN: Soft, nontender, normal bowel sounds, no guarding. EXTREMITIES: Normal range of motion, no pitting edema. No cyanosis. BACK: No midline or CVA tenderness. No step-off or deformity. NEUROLOGICAL: Cranial nerves grossly intact. Normal speech. Normal gait. PSYCH: Calm, Cooperative, and answers questions appropriately. Normal mood and affect. SKIN: Warm, Dry, Normal color and Turgor, No obvious lesions or rash noted. Diagnostic Results Laboratory Results: Patient notified of NEGATIVE results on Rapid Flu (A & B) and Rapid Strep. Advised Throat Culture and COVID testing are PENDING, and they will be notified of any POSITIVE culture results at a later date/time. Patient has been made aware that is currently taking 3 to 5 days for COVID test results, and that The [facility] Department will call to notify them of a POSITIVE COVID-19 test results and a member of the [facility] team will call to notify them of a NEGATIVE COVID-19 result. Patient aware they will be notified by phone, whether they have a NEGATIVE or POSITIVE COVID-19 result. Patient Education/Counseling Counseling/Education: Patient presents with upper respiratory symptoms worrisome for possible COVID- 19. Patient does not have symptoms worrisome as an emergency such as difficulty breathing, shortness of breath, chest pain, pressure, confusion or cyanosis. Patient appears suitable for discharge. Patient's vital signs are stable and patient is nontoxic in appearance. Good return precautions have been discussed with patient, patient verbalized understanding and is agreeable with discharge plan of care at this time. Patient provided COVID-19 discharge instructions to include: As a person under investigation for COVID-19, the [facility], division of public health advises you to adhere to the following guidance until your test results are reported to you. If your test result is positive, you will receive additional information from your provider and your local health department at that time. Remain at home until you are cleared by the health provider or public health authorities. Keep a log of visitors to your home, notify any visitors to your home of your isolation status. If you plan to move to a new address or leave the county, notify the local health department in your County. Call your doctor or seek care if you have an urgent medical need. Before seeking medical care, call ahead to get instructions from the provider before arriving at the medical office clinic or hospital. Notify them that you are being tested for the virus that causes COVID-19 so that arrangements can be made, as necessary, to prevent transmission to others in the healthcare setting. Next, notify the local health department in your county. If a medical emergency arises and you need to call 911, inform dispatch and the first responders that you are being tested for the virus that causes COVID-19. Next, notify the local health department in your county. Patient provided education on smoking cessation and the harmful effects of smoking, especially in the presence of Co-morbid conditions such as Hypertension, Diabetes, and/or other chronic illnesses. Patient verbalized understanding of smoking cessation education, and the increased health benefits of quitting. Guidance for worsening S/SX: For worsening symptoms, patient has been advised to contact their Primary Care Provider, or go to the nearest Emergency Department. RDC Discharge - Discharge Clinical Impression: COVID-19 Screening URI (upper respiratory infection) Qualifiers: URI type: unspecified URI Qualified Code(s): J06.9 - Acute upper respiratory infection, unspecified Condition: Stable Disposition: Home; Selfcare
[2020-07-05 10:18] VITALS: BP 122/59
[2020-07-05 11:28] LABS: A TYPE INFLUENZA AG NEGATIVE (NEGATIVE); B INFLUENZA AG NEGATIVE (NEGATIVE)
== END ==
LOC: RDC 09:32
PROVIDERS: ATTEND Nurse Practitioner Family
DX: J02.0 Streptococcal pharyngitis (principal); B95.4 Other streptococcus as the cause of diseases classified elsewhere; Z20.828 Contact with and (suspected) exposure to other viral communicable diseases; R50.9 Fever, unspecified; J34.89 Other specified disorders of nose and nasal sinuses; R05 Cough; R11.2 Nausea with vomiting, unspecified; R51.9 Headache, unspecified; M79.10 Myalgia, unspecified site; E66.01 Morbid (severe) obesity due to excess calories; Z88.8 Allergy status to other drugs, medicaments and biological substances; Z88.6 Allergy status to analgesic agent; Z91.02 Food additives allergy status; Z91.040 Latex allergy status; Z87.891 Personal history of nicotine dependence
CPT/HCPCS: 87070; 87880; 87077; 87804; U0003; C9803; 87635; 99211

== ENCOUNTER → 2020-07-21 | Outpatient (CLI) | payer BC ==
[2020-07-21 18:39] LABS: APPEARANCE,URINE CLOUDY; BILIRUBIN,URINE NEGATIVE (NEGATIVE); COLOR,URINE YELLOW; GLUCOSE, URINE NEGATIVE (NEGATIVE); KETONES,URINE NEGATIVE (NEGATIVE); PROTEIN,URINE 30 mg/dL (NEGATIVE)
== END ==
LOC: LAB 18:07
PROVIDERS: ATTEND Registered Nurse
DX: R30.0 Dysuria (principal)
CPT/HCPCS: 36415; 81001; 87086; 87088; 87186

== ENCOUNTER → 2020-08-05 | Outpatient (CLI) | payer BC ==
[~2020-08-05] MED LIST changes: +COVID-19 VACCINE (PFIZER)/PF 30 MCG/0.3 ML VIAL IM ONE; +EPINEPHRINE INJ/PF 1 MG/1 ML AMPULE IM PRN; -LIDOCAINE 1% INJ-PF (10 MG/ML) 30 ML SDV ONE
== END ==
LOC: EMPHEALTH 09:57
PROVIDERS: ATTEND Internal Medicine
DX: Z23 Encounter for immunization (principal)
CPT/HCPCS: 91300

== ENCOUNTER → 2020-08-26 | Outpatient (CLI) | payer BC | LOC: EMPHEALTH 09:59 | PROVIDERS: ATTEND Internal Medicine | DX: Z23 Encounter for immunization (principal) | CPT/HCPCS: 91300 ==